=== PATIENT | male | born 1955 | race African-American/Black ===

== ENCOUNTER 2017-06-15 14:06 | Emergency (ER) | payer SELFPAY ==
[~2017-06-15] VITALS: Ht 175.3 cm; Wt 69.0 kg
[2017-06-15] MEDS ORDERED: IBUPROFEN 600MG TABLET PO ONE (14:45)
[2017-06-15] MEDS ORDERED: ACETAMINOPHEN WITH CODEINE 300/30MG TABLET PO ONE (14:45)
[2017-06-15 16:58] VITALS: BP 125/91
== END 2017-06-15 16:59 | disposition home or self-care (01) ==
LOC: ER 14:14
DX: S20.212A Contusion of left front wall of thorax, initial encounter (principal); W11.XXXA Fall on and from ladder, initial encounter; Y93.89 Activity, other specified; Y92.89 Other specified places as the place of occurrence of the external cause; Y99.8 Other external cause status
CPT/HCPCS: 71101; 99284